=== PATIENT | male | born 1955 ===

== ENCOUNTER 2021-09-19 06:00 | Outpatient (RCR) | payer MEDICARE, SELFPAY | END 2021-10-14 23:59 | disposition home or self-care (01) | LOC: MPT 06:00 | PROVIDERS: Referring Provider Urology; Visit Provider Urology | DX: N39.3 Stress incontinence (female) (male) (principal); Z85.46 Personal history of malignant neoplasm of prostate | CPT/HCPCS: 97110; 97140; 97161; 97530 ==

== ENCOUNTER 2021-10-15 06:00 | Outpatient (RCR) | payer MEDICARE, BC, SELFPAY | END 2021-11-14 23:59 | disposition home or self-care (01) | LOC: MPT 06:00 | PROVIDERS: Referring Provider Urology; Visit Provider Urology | DX: N39.3 Stress incontinence (female) (male) (principal); Z85.46 Personal history of malignant neoplasm of prostate | CPT/HCPCS: 97110; 97140; 97530 ==

== ENCOUNTER 2021-11-15 06:00 | Outpatient (RCR) | payer MEDICARE, SELFPAY | END 2021-12-15 23:59 | disposition home or self-care (01) | LOC: MPT 06:00 | PROVIDERS: Visit Provider Urology | DX: N39.3 Stress incontinence (female) (male) (principal); Z85.46 Personal history of malignant neoplasm of prostate | CPT/HCPCS: 97140; 97530 ==

== ENCOUNTER 2022-01-13 06:00 | Outpatient (RCR) | payer MEDICARE, SELFPAY | END 2022-02-09 23:59 | disposition home or self-care (01) | LOC: MPT 06:00 | PROVIDERS: Visit Provider Urology | DX: N39.3 Stress incontinence (female) (male) (principal); Z85.46 Personal history of malignant neoplasm of prostate | CPT/HCPCS: 97110; 97530 ==